=== PATIENT | female | born 1950 | race Caucasian/White ===

== ENCOUNTER 2020-07-19 09:54 | Outpatient (REF) | payer MEDICARE, SELFPAY ==
--- NOTE | ~2020-07-19 | MM_ITS ---
EXAMINATION: MM SCREENING DIGITAL BREAST TOMOSYNTHESIS, BILATERAL CLINICAL INFORMATION: Screening. Asymptomatic. The lifetime risk of breast cancer based on the Tyrer-Cuzick Model is 3.8%. COMPARISON: Mammography: August 18, 2018 and studies dating back to June 16, 2013 TECHNIQUE: Digital breast tomosynthesis is performed in both the craniocaudal and mediolateral oblique views along with computer-aided detection (CAD). Synthesized 2D images are generated from the tomosynthesis. FINDINGS: There are scattered areas of fibroglandular density (ACR BI-RADS breast composition Category b). There are no significant masses, abnormal calcifications, or other abnormalities. MM/MM tomosynthesis screening BI IMPRESSION: There are no significant changes from prior study. ASSESSMENT: BI-RADS 1: Negative RECOMMENDATION: Routine annual mammography screening. This patient's information was entered into a reminder system with a target due date for their next mammogram.
== END 2020-07-19 09:55 | disposition home or self-care (01) ==
LOC: HO.MAMMO 09:54
PROVIDERS: PCP Internal Medicine; Visit Provider Internal Medicine
DX: Z12.31 Encounter for screening mammogram for malignant neoplasm of breast (principal)
CPT/HCPCS: 77063; 77067

== ENCOUNTER 2021-06-03 08:42 | Outpatient (REF) | payer OTHER, SELFPAY ==
[2021-06-03 09:22] LABS: Basophils Absolute Auto 0.1 X10*3/uL (0.0-0.2); Basophils Percent Auto 1.1 % (0-2); Eosinophils Absolute Auto 0.1 X10*3/uL (0.0-0.4); Eosinophils Percent Auto 1.3 % (0-4); Hematocrit 37.4 % (37.0-47.0); Hemoglobin 12.3 g/dl (12.0-16.0); Imm Gran Abs Auto 0.07 X10*3/uL (0.00-0.03); Imm Gran Pct Auto 1.6 % (0.0-0.4); Lymphocytes Absolute Auto 1.3 X10*3/uL (1.2-4.9); MANUAL DIFF FLAG SCAN; Mean Corpuscular HGB Conc 32.9 g/dl (31.0-35.0); Mean Corpuscular Hemoglobin 31.6 pg (27.0-33.0); Mean Corpuscular Volume 96.1 fL (80.0-98.0); Mean Platelet Volume 10.2 fL (9.4-12.3); Monocytes Absolute Auto 0.4 X10*3/uL (0.1-1.2); Monocytes Percent Auto 8.3 % (2-11); Neutrophils Absolute Auto 2.7 x10*3/uL (2.0-8.3); Neutrophils Percent Auto 59.7 % (45-73); Platelet Count 216 X10*3/uL (160-400); Red Blood Count 3.89 X10*6/uL (4.20-5.50); Red Cell Distribution Width 12.3 % (11.0-16.0); SCAN SMEAR FLAG 1; White Blood Count 4.5 X10*3/uL (4.8-10.8)
[2021-06-03 09:44] LABS: Alanine Aminotransferase 26 U/L (0-31); Albumin Level 4.3 g/dL (3.5-5.0); Alkaline Phosphatase 81 U/L (39-117); Anion Gap 12 (12-20); Aspartate Amino Transferase 28 U/L (5-31); Bilirubin Total 0.4 mg/dL (0.0-1.0); Blood Urea Nitrogen 12 mg/dL (9-16); Calcium 9.7 mg/dL (8.4-10.2); Carbon Dioxide 27 mmol/L (22-29); Chloride 106 mmol/L (96-108); Cholesterol 139 mg/dL; Estimated Glomerular Filt Rate > 60; Glucose Fasting 126 mg/dL (60-99); HDL Cholesterol 51 mg/dL; LDL Cholesterol Calculated 56 mg/dl; Potassium 4.7 mmol/L (3.3-5.1); Sodium 140 mmol/L (135-145); Total Protein 7.3 g/dL (6.5-8.0); Triglycerides 163 mg/dL
[2021-06-03 10:06] LABS: SLIDE REVIEW VERIFIED
[2021-06-03 10:08] LABS: Thyroid Stimulating Hormone 1.09 uIU/mL (0.32-4.0)
[2021-06-03 11:24] LABS: Creatinine Urine 117.85 mg/dL; Microalbum/Creatinine Ratio Ur 21.2 ug/mg cr
[2021-06-07 12:47] LABS: Vitamin D 25-OH, D2 <4 ng/mL; Vitamin D 25-OH, D3 33 ng/mL; Vitamin D 25-OH, Total 33 ng/mL (30-100)
== END 2021-06-03 08:43 | disposition home or self-care (01) ==
LOC: HO.LAB 08:42
PROVIDERS: PCP Internal Medicine; Visit Provider Internal Medicine
DX: E03.9 Hypothyroidism, unspecified (principal); D64.9 Anemia, unspecified; E78.5 Hyperlipidemia, unspecified; E55.9 Vitamin D deficiency, unspecified; E11.9 Type 2 diabetes mellitus without complications
CPT/HCPCS: 36415; 80053; 80061; 82043; 82306; 84443; 85025

== ENCOUNTER → 2021-10-08 12:59 | Outpatient (BNVA) | payer OTHER, SELFPAY | PROVIDERS: PCP Internal Medicine; Visit Provider Nurse Practitioner Family | DX: G47.33 Obstructive sleep apnea (adult) (pediatric) (principal); R06.83 Snoring; R40.0 Somnolence | CPT/HCPCS: 99202 ==

== ENCOUNTER 2021-10-10 09:12 | Outpatient (REF) | payer OTHER, SELFPAY ==
--- NOTE | ~2021-10-10 | MM_ITS ---
EXAMINATION: MM SCREENING DIGITAL BREAST TOMOSYNTHESIS, BILATERAL CLINICAL INFORMATION: Screening. Asymptomatic. The lifetime risk of breast cancer based on the Tyrer-Cuzick Model is 4%. COMPARISON: Mammography: 07/19/2020, 08/18/2018, 07/22/2017 TECHNIQUE: Digital breast tomosynthesis is performed in both the craniocaudal and mediolateral oblique views along with computer-aided detection (CAD). Synthesized 2D images are generated from the tomosynthesis. FINDINGS: There are scattered areas of fibroglandular density (ACR BI-RADS breast composition Category b). There are no significant masses, abnormal calcifications, or other abnormalities. Parenchymal pattern is similar to prior studies. There is no developing density or architectural abnormality. The axilla and skin contours are unremarkable. No significant changes. MM/MM tomosynthesis screening BI IMPRESSION: No mammographic evidence of malignancy. ASSESSMENT: BI-RADS 1: Negative RECOMMENDATION: Routine annual mammography screening. This patient's information was entered into a reminder system with a target due date for their next mammogram.
== END 2021-10-10 09:13 | disposition home or self-care (01) ==
LOC: HO.MAMMO 09:12
PROVIDERS: PCP Internal Medicine; Visit Provider Internal Medicine
DX: Z12.31 Encounter for screening mammogram for malignant neoplasm of breast (principal)
CPT/HCPCS: 77063; 77067

== ENCOUNTER → 2021-10-29 13:58 | Outpatient (REF) | payer OTHER, SELFPAY | LOC: HO.SL 13:58 | PROVIDERS: Visit Provider Nurse Practitioner Family | DX: G47.33 Obstructive sleep apnea (adult) (pediatric) (principal); R40.0 Somnolence; R06.83 Snoring | CPT/HCPCS: 95806 ==

== ENCOUNTER → 2022-01-07 13:58 | Outpatient (BNVA) | payer OTHER, SELFPAY | PROVIDERS: PCP Internal Medicine; Visit Provider Nurse Practitioner Family | DX: G47.33 Obstructive sleep apnea (adult) (pediatric) (principal); R40.0 Somnolence; R06.83 Snoring | CPT/HCPCS: 99212 ==

== ENCOUNTER 2022-02-18 08:14 | Outpatient (REF) | payer OTHER, SELFPAY ==
[2022-02-18 09:33] LABS: Alanine Aminotransferase 24 U/L (0-31); Albumin Level 4.6 g/dL (3.5-5.0); Alkaline Phosphatase 105 U/L (39-117); Anion Gap 16 (12-20); Aspartate Amino Transferase 27 U/L (5-31); Bilirubin Total 0.6 mg/dL (0.0-1.0); Blood Urea Nitrogen 15 mg/dL (9-16); Calcium 9.9 mg/dL (8.4-10.2); Carbon Dioxide 25 mmol/L (22-29); Chloride 106 mmol/L (96-108); Cholesterol 145 mg/dL; Estimated Glomerular Filt Rate > 60; Glucose Fasting 135 mg/dL (60-99); HDL Cholesterol 51 mg/dL; LDL Cholesterol Calculated 58 mg/dl; Potassium 4.5 mmol/L (3.3-5.1); Sodium 142 mmol/L (135-145); Total Protein 7.7 g/dL (6.5-8.0); Triglycerides 180 mg/dL
[2022-02-18 09:43] LABS: Thyroid Stimulating Hormone 0.63 uIU/mL (0.32-4.0); Vitamin D 25-OH Total 31.2 ng/mL (>30)
[2022-02-18 10:01] LABS: Creatinine Urine 140.32 mg/dL; Microalbum/Creatinine Ratio Ur 42.7 ug/mg cr
== END 2022-02-18 08:15 | disposition home or self-care (01) ==
LOC: HO.LAB 08:14
PROVIDERS: PCP Internal Medicine; Visit Provider Internal Medicine
DX: E55.9 Vitamin D deficiency, unspecified (principal); E03.9 Hypothyroidism, unspecified; E11.9 Type 2 diabetes mellitus without complications; E78.5 Hyperlipidemia, unspecified
CPT/HCPCS: 36415; 80053; 80061; 82043; 82306; 84443

== ENCOUNTER 2022-05-03 08:32 | Outpatient (REF) | payer OTHER, SELFPAY ==
[2022-05-03 10:06] LABS: Alanine Aminotransferase 26 U/L (0-31); Albumin Level 4.3 g/dL (3.5-5.0); Alkaline Phosphatase 85 U/L (39-117); Anion Gap 14 (12-20); Aspartate Amino Transferase 29 U/L (5-31); Bilirubin Total 0.5 mg/dL (0.0-1.0); Blood Urea Nitrogen 11 mg/dL (9-16); Carbon Dioxide 25 mmol/L (22-29); Chloride 107 mmol/L (96-108); Cholesterol 154 mg/dL; Estimated Glomerular Filt Rate > 60; Glucose Fasting 126 mg/dL (60-99); HDL Cholesterol 51 mg/dL; LDL Cholesterol Calculated 67 mg/dl; Potassium 4.6 mmol/L (3.3-5.1); Sodium 141 mmol/L (135-145); Total Protein 6.9 g/dL (6.5-8.0); Triglycerides 184 mg/dL
[2022-05-03 10:27] LABS: Thyroid Stimulating Hormone 0.99 uIU/mL (0.32-4.0); Vitamin D 25-OH Total 42.9 ng/mL (>30)
[2022-05-03 11:03] LABS: Creatinine Urine 125.77 mg/dL; Microalbum/Creatinine Ratio Ur 23.8 ug/mg cr
== END 2022-05-03 08:33 | disposition home or self-care (01) ==
LOC: HO.LAB 08:32
PROVIDERS: PCP Internal Medicine; Visit Provider Internal Medicine
DX: E03.9 Hypothyroidism, unspecified (principal); E11.9 Type 2 diabetes mellitus without complications; E55.9 Vitamin D deficiency, unspecified; E78.5 Hyperlipidemia, unspecified
CPT/HCPCS: 36415; 80053; 80061; 82043; 82306; 84443

== ENCOUNTER → 2022-07-08 12:55 | Outpatient (BNVA) | payer OTHER, SELFPAY | PROVIDERS: PCP Internal Medicine; Visit Provider Nurse Practitioner Family | DX: G47.33 Obstructive sleep apnea (adult) (pediatric) (principal); R40.0 Somnolence | CPT/HCPCS: 99212 ==

== ENCOUNTER 2022-10-16 08:14 | Outpatient (REF) | payer OTHER, SELFPAY ==
[2022-10-16 09:14] LABS: Alanine Aminotransferase 16 U/L (0-31); Albumin Level 4.5 g/dL (3.5-5.0); Alkaline Phosphatase 81 U/L (39-117); Anion Gap 14 (12-20); Aspartate Amino Transferase 21 U/L (5-31); Bilirubin Total 0.3 mg/dL (0.0-1.0); Blood Urea Nitrogen 12 mg/dL (9-16); Calcium 9.8 mg/dL (8.4-10.2); Carbon Dioxide 24 mmol/L (22-29); Chloride 108 mmol/L (96-108); Cholesterol 142 mg/dL (<200); Estimated Glomerular Filt Rate > 60; Glucose Fasting 123 mg/dL (60-99); HDL Cholesterol 47 mg/dL (>40); LDL Cholesterol Calculated 57 mg/dL (<100); Potassium 4.1 mmol/L (3.3-5.1); Sodium 142 mmol/L (135-145); Total Protein 7.7 g/dL (6.5-8.0); Triglycerides 190 mg/dL (<150)
[2022-10-16 09:30] LABS: Thyroid Stimulating Hormone 1.14 uIU/mL (0.32-4.0); Vitamin D 25-OH Total 51.5 ng/mL (>30)
[2022-10-16 09:39] LABS: Microalbum/Creatinine Ratio Ur 63.1 ug/mg cr (<30)
== END 2022-10-16 08:15 | disposition home or self-care (01) ==
LOC: HO.LAB 08:14
PROVIDERS: PCP Internal Medicine; Visit Provider Internal Medicine
DX: Z12.31 Encounter for screening mammogram for malignant neoplasm of breast (principal); E78.5 Hyperlipidemia, unspecified; E03.9 Hypothyroidism, unspecified; E55.9 Vitamin D deficiency, unspecified; E11.9 Type 2 diabetes mellitus without complications
CPT/HCPCS: 36415; 77063; 77067; 80053; 80061; 82043; 82306; 82570; 84443

== ENCOUNTER 2022-10-16 08:39 | Outpatient (REF) | payer OTHER, SELFPAY | END 2022-10-16 08:40 | disposition home or self-care (01) | LOC: HO.MAMMO 08:39 | PROVIDERS: Visit Provider Internal Medicine | DX: Z13.89 Encounter for screening for other disorder (principal) ==

== ENCOUNTER → 2022-10-16 09:45 | Outpatient (BNV) | payer OTHER, SELFPAY | PROVIDERS: PCP Internal Medicine; Visit Provider Radiology Diagnostic Radiology | DX: Z12.31 Encounter for screening mammogram for malignant neoplasm of breast (principal) | CPT/HCPCS: 77063; 77067 ==

== ENCOUNTER 2022-11-19 15:47 | Outpatient (AMB) | payer OTHER, SELFPAY ==
--- NOTE | 2022-11-19 15:53 | A.OFFPC_ITS ---
Vital Signs 11/19/22 15:55 Height 4 ft 10 in Weight 176 lb BMI 36.8 BP 126/80 Blood Pressure Location Lt brachial Position Sitting Pulse 83 Pulse Source Pulse Oximeter Pulse Oximetry (%) 97 Oxygen Delivery Method Room Air Intake Visit Reasons: dm Intake Note: Patient here for a follow up DM Direct Mail Coordinator Required: No Accompanied by: Self / Same As Patient Allergies No Known Allergies Allergy (Verified 11/19/22 16:05) Medication List - Last Reconciled 11/19/22 by Luba Funes MD [adult pull-ups As directed] albuterol sulfate 2.5 mg (3 mL) inhalation QID PRN 30 days blood pressure monitor As directed blood sugar diagnostic ([facility] Verio test strips) Use 1 strip once a day blood-glucose meter ([facility] Verio Meter) As directed cholecalciferol (vitamin D3) 50 mcg PO DAILY 90 days diaper,brief,adult,disposable Three times a day fluoxetine 20 mg PO DAILY fluticasone propionate 50 mcg/actuation (Flonase Allergy Relief) 1 spray intr anasal BID 30 days lancets ([facility] Delica Lancets) Use 1 lancet once a day levothyroxine 50 mcg PO DAILY lisinopril 10 mg PO DAILY 90 days loratadine (Allergy Relief (loratadine)) 10 mg PO DAILY 90 days meloxicam 15 mg PO DAILY 30 days metformin ER 500 mg PO BID 90 days metoprolol tartrate 25 mg PO BID nebulizers (AeroEclipse II Nebulizer) As directed oxybutynin chloride ER 15 mg PO DAILY pantoprazole 40 mg PO DAILY 90 days perphenazine 4 mg PO BEDTIME propylene glycol 0.6% (Systane Balance) 1 drp ophthalmic (eye) DAILY PRN 7 days rosuvastatin 40 mg PO DAILY 90 days underpads (Goodnites Bed Mats) Use 1 underpad three times a day Ventolin HFA 90 mcg/actuation (albuterol sulfate) 2 puffs inhalation Q6H PRN 30 days NS [wipes As directed] Tobacco use date assessed: 03/10/22 Fall risk assessment: No Falls in past year Last assessed Fall Risk: 11/19/22 Dental Screening Dental Screen Date: 11/19/22 Did you have a dental visit in the last 12 months?: No Did you have a dental problem in the last 6 months where you did not have access to dental care?: No Was dental information given to patient?: Patient has dentist HPI HPI Comments History of Present Illness Details This is a 72-year-old female with diabetes mellitus type 2, hypothyroidism, hypertension, pure hypercholesterolemia and mild recurrent major depression that comes today for follow-up on her conditions. A1c within goal. TSH normal. Blood pressure stable. LDL within goal. Depression stable. PFSH Medical History Foot callus Mild recurrent major depression LUIS F on CPAP Back pain Giardiasis Urge urinary incontinence Urge urinary incontinence COVID-19 Diabetes mellitus Renal calculi History of bacteremia Pure hypercholesterolemia GERD (gastroesophageal reflux disease) Hypothyroidism Surgical History History of tubal ligation Family History Father No problems noted. Mother Renal cancer Maternal Uncle Bone cancer Social History Housing: Apartment Alcohol intake: never Patient Tobacco Use Status: Never used Tobacco e-Cigarette/Vaping Use: Never Used Second Hand Smoke Exposure: No service: No Current occupational status: disabled Cognitive needs: No Hearing needs: No Vision needs: No Questionnaire Thrive Questionnaire Date Thrive assessed: 03/10/22 ASHOK-7 AMB Questionnaire ASHOK-7 Date ASHOK - 7 assessed: 03/10/22 Source: Developed by Drs. Arslan Francois, Leslie Hendrickson, Brayan Kruger and colleagues, with an educational crystal from [employer]. Review of Systems Const All systems reviewed & are unremarkable except as noted in HPI and below Eyes Reports no additional complaints, Denies change in vision and Denies other visual disturbances Card Denies chest pain at rest, Denies chest pain with activity, Denies edema, Denies irregular heart rhythm, Denies claudication, Denies dyspnea, Denies dyspnea on exertion, Denies orthopnea, Denies paroxysmal nocturnal dyspnea and Denies slow heart rate Resp Denies cough, Denies dyspnea and Denies dyspnea on exertion GI Denies abdominal pain, Denies change in bowel habits, Denies excessive flatus, Denies nausea and Denies vomiting Denies urinary incontinence, Denies urinary hesitancy and Denies urinary urgency Musc Denies abnormal gait, Denies atrophy, Denies deformity and Denies limited range of motion Skin/Breast Denies bleeding lesions, Denies changing lesions and Denies rash Neuro Denies abnormal gait and Denies lack of coordination Physical exam (Primary Care) Vital Signs: Last Vital Signs Pulse 83 11/19/22 15:55 BP 126/80 11/19/22 15:55 Pulse Ox 97 11/19/22 15:55 Oxygen Delivery Method Room Air 11/19/22 15:55 BMI result Body Mass Index 36.8 Tobacco/Smoking Status: Tobacco use Status Tobacco use date assessed 03/10/22 11/19/22 15:54 Patient Tobacco Use Status Never used Tobacco 11/19/22 15:54 Tobacco use type 05/29/21 15:51 e-Cigarette/Vaping Use Never Used 11/19/22 15:54 Thrive Assessment: Date of Thrive Assessment Date Thrive assessed 03/10/22 11/19/22 15:54 Eyes General: appearance normal, both eyes and all related structures Eyelids: Yes eyelids normal Conjunctivae: conjunctivae normal Neck Neck: Yes normal visual inspection and Yes supple Resp Effort & Inspection: normal respiratory effort Auscultation: clear to auscultation bilaterally Cardio Jugular venous distension: no JVD Rate: regular rate Rhythm: regular rhythm Heart sounds: S1 normal heart sound present and S2 normal heart sound present Extrem General: Yes full ROM Office Procedures Flu Questionnaire Does the patient have a severe egg allergy?: No Does the patient have severe life threatening allergies?: No Does the patient have a fever or illness today?: No Has the patient ever had Guillain-[place] Syndrome?: No Has the patient ever had any past reaction to a flu shot?: No Results AMB Hemoglobin A1c AMB Hemoglobin A1c 6.9 % Last Edit by BRENDA Albarran on 11/19/22 16:0 2 Immunizations flu vacc [id number] 6mos up(PF) 60 mcg(15 mcgx4)/0.5 mL IM syringe Performing Provider: Luba Funes MD Performing Location: [facility] Administered by: BRENDA Albarran on 11/19/22 16:13 Dose Route Admin Location Dispensed Lot Number Expiration Date NDC Duty Manager 0.5 mL IM Left Deltoid 0.5 mL [id number] 08/09/23 40216-779-40 [employer] VIS Given Date VIS Provided VIS Publication Date 11/19/22 Single Vaccine 20 Eligibility Eligibility Date Funding Source Not VFC Eligible 11/19/22 Private Results Reviewed Results Reviewed: Laboratory Last Values Hgb A1c (Clinic) 6.9 % (4.0-6.0) H 11/19/22 15:52 Assessment and Plan Assessment & Plan (1) Mild recurrent major depression: Code(s): F33.0 - Major depressive disorder, recurrent, mild Plan: Continue SSRIs. (2) Essential hypertension: Code(s): I10 - Essential (primary) hypertension Plan: Continue lisinopril. Blood pressure goal is equal or less than 130/80. (3) Diabetes mellitus: Code(s): E11.9 - Type 2 diabetes mellitus without complications Qualifiers: Diabetes mellitus type: type 2 Diabetes mellitus marine oil terminal superintendent insulin use: without marine oil terminal superintendent use Diabetes mellitus complication status: without complication Qualified Code(s): E11.9 - Type 2 diabetes mellitus without complications Plan: Continue metformin. A1c goal is equal or less than 7%. (4) Hypothyroidism: Code(s): E03.9 - Hypothyroidism, unspecified Qualifiers: Hypothyroidism type: acquired Qualified Code(s): E03.9 - Hypothyroidism, unspecified Plan: Continue levothyroxine. (5) Pure hypercholesterolemia: Code(s): E78.00 - Pure hypercholesterolemia, unspecified Plan: Continue statins. LDL goal is less than 70. Orders: Orders Lipid Panel 4 Months E78.5 - Hyperlipidemia, unspecified Microalbumin, Random (w Creat) 4 Months E11.9 - Type 2 diabetes mellitus without complications AMB Hemoglobin A1c Today E11.9 - Type 2 diabetes mellitus without complications Influenza [id number] Immunization Today Z23 - Encounter for immunization Vitamin D 25-OH Total 4 Months E55.9 - Vitamin D deficiency, unspecified Comprehensive [place]. Panel Fast 4 Months E11.9 - Type 2 diabetes mellitus without complications Coding Level of Care Code Est Pt Level 4 (47587) Diagnoses Mild recurrent major depression F33.0 Essential hypertension I10 Type 2 diabetes mellitus without complication, without long-term current use of insulin E11.9 Diabetes mellitus type: type 2 Diabetes mellitus senior care insulin use: without marine oil terminal superintendent use Diabetes mellitus complication status: without complication Acquired hypothyroidism E03.9 Hypothyroidism type: acquired Pure hypercholesterolemia E78.00 Time Spent (min) 23
[2022-11-19 15:55] VITALS: BP 126/80; PULSE 83; O2SAT 97; BMI 36.8
== END 2022-11-19 16:14 | disposition home or self-care (01) ==
PROVIDERS: PCP Internal Medicine; Visit Provider Internal Medicine
DX: F33.0 Major depressive disorder, recurrent, mild (principal); I10 Essential (primary) hypertension; E11.9 Type 2 diabetes mellitus without complications; E03.9 Hypothyroidism, unspecified; E78.00 Pure hypercholesterolemia, unspecified; Z23 Encounter for immunization
CPT/HCPCS: 83036; 90471; 90686; 99214

== ENCOUNTER 2023-03-14 09:58 | Outpatient (REF) | payer OTHER, SELFPAY ==
[2023-03-14 12:18] LABS: Alanine Aminotransferase 37 U/L (0-31); Alkaline Phosphatase 99 U/L (39-117); Anion Gap 11 (12-20); Aspartate Amino Transferase 46 U/L (5-31); Bilirubin Total 0.3 mg/dL (0.0-1.0); Blood Urea Nitrogen 18 mg/dL (9-16); Calcium 9.4 mg/dL (8.4-10.2); Carbon Dioxide 24 mmol/L (22-29); Chloride 110 mmol/L (96-108); Cholesterol 108 mg/dL (<200); Estimated Glomerular Filt Rate 53; Glucose Fasting 117 mg/dL (60-99); HDL Cholesterol 41 mg/dL (>40); LDL Cholesterol Calculated 45 mg/dL (<100); Potassium 4.4 mmol/L (3.3-5.1); Sodium 141 mmol/L (135-145); Total Protein 7.2 g/dL (6.5-8.0); Triglycerides 114 mg/dL (<150)
[2023-03-14 12:22] LABS: Vitamin D 25-OH Total 44.7 ng/mL (>30)
[2023-03-14 12:34] LABS: Microalbum/Creatinine Ratio Ur 299.1 ug/mg cr (<30)
== END 2023-03-14 09:59 | disposition home or self-care (01) ==
LOC: HO.LAB 09:58
PROVIDERS: PCP Internal Medicine; Visit Provider Internal Medicine
DX: E78.5 Hyperlipidemia, unspecified (principal); E55.9 Vitamin D deficiency, unspecified; E11.9 Type 2 diabetes mellitus without complications
CPT/HCPCS: 36415; 80053; 80061; 82043; 82306; 82570

== ENCOUNTER 2023-03-23 13:37 | Outpatient (AMB) | payer OTHER, SELFPAY ==
[2023-03-23 13:50] VITALS: BP 126/70; BMI 34.7
--- NOTE | 2023-03-23 13:50 | MHC.PC.OV ---
Vital Signs 03/23/23 13:50 Height 4 ft 10 in Weight 166 lb BMI 34.7 BP 126/70 Blood Pressure Location Lt brachial Position Sitting Intake Visit Reasons: dm Intake Note: Patient here for a follow up DM O And M Supervisor Required: No Accompanied by: Self / Same As Patient Allergies No Known Allergies Allergy (Verified 03/23/23 14:13) Medication List - Last Reconciled 03/23/23 by Luba Funes MD [adult pull-ups As directed] albuterol sulfate 2.5 mg (3 mL) inhalation QID PRN 30 days blood pressure monitor As directed blood sugar diagnostic (One[employer] Verio test strips) Use 1 strip once a day blood-glucose meter (OneTouch Verio Meter) As directed cholecalciferol (vitamin D3) 50 mcg PO DAILY 90 days diaper,brief,adult,disposable XL, Three times a day fluoxetine 20 mg PO DAILY fluticasone propionate 50 mcg/actuation (Flonase Allergy Relief) 1 spray intranasal BID 30 days lancets Use 1 lancet once a day levothyroxine 50 mcg PO DAILY lisinopril 10 mg PO DAILY 90 days loratadine (Allergy Relief (loratadine)) 10 mg PO DAILY 90 days meloxicam 15 mg PO DAILY 30 days metformin ER 500 mg PO BID 90 days metoprolol tartrate 25 mg PO BID nebulizers (AeroEclipse II Nebulizer) As directed oxybutynin chloride ER 15 mg PO DAILY pantoprazole 40 mg PO DAILY 90 days perphenazine 4 mg PO BEDTIME propylene glycol 0.6% (Systane Balance) 1 drp ophthalmic (eye) DAILY PRN 7 days rosuvastatin 40 mg PO DAILY 90 days underpads ([employer] Bed Mats) Use 1 underpad three times a day Ventolin HFA 90 mcg/actuation (albuterol sulfate) 2 puffs inhalation Q6H PRN 30 days NS [wipes As directed] Tobacco use date assessed: 03/23/23 Fall risk assessment: No Falls in past year Last assessed Fall Risk: 03/23/23 Dental Screening Dental Screen Date: 03/23/23 Did you have a dental visit in the last 12 months?: No Did you have a dental problem in the last 6 months where you did not have access to dental care?: No Was dental information given to patient?: Patient has dentist HPI HPI Comments History of Present Illness Details This is a 72-year-old female with diabetes mellitus type 2, mild major depression, hypertension, pure hypercholesterolemia and hypothyroidism that comes today for follow-up on her conditions. Walks with a cane for gait stability. A1c slightly elevated and dietary changes were advised. Depression stable with SSRIs. Blood pressure well controlled. LDL within goal. TSH was ordered and she is compliant with her medications. Denies any chest pain or shortness of breath. COUNTS INCLUDE 234 BEDS AT THE [facility] Medical History Foot callus Mild recurrent major depression LUIS F on CPAP Back pain Giardiasis Urge urinary incontinence Urge urinary incontinence COVID-19 Diabetes mellitus Renal calculi History of bacteremia Pure hypercholesterolemia GERD (gastroesophageal reflux disease) Hypothyroidism Surgical History History of tubal ligation Family History Father No problems noted. Mother Renal cancer Maternal Uncle Bone cancer Social History Housing: Apartment Alcohol intake: never Patient Tobacco Use Status: Never used Tobacco e-Cigarette/Vaping Use: Never Used Second Hand Smoke Exposure: No service: No Current occupational status: disabled Cognitive needs: No Hearing needs: No Vision needs: No Questionnaire PHQ-9 Over the last 2 weeks, how often have you been bothered by any of the following problems? 1. Little interest or pleasure in doing things: not at all 2. Feeling down, depressed, or hopeless: not at all 3. Trouble falling or staying asleep, or sleeping too much: not at all 4. Feeling tired or having little energy: not at all 5. Poor appetite or overeating: not at all 6. Feeling bad about yourself - or that you are a failure or have let yourself or your family down: not at all 7. Trouble concentrating on things, such as reading the newspaper or watching television: not at all 8. Moving or speaking so slowly that other people could have noticed. Or the opposite - being so fidgety or restless that you have been moving around a lot more than usual: not at all 9. Thoughts that you would be better off or of hurting yourself in some way: not at all Total score: 0 Depression Screening Interpretation: Negative Depression Screening Done: Yes 45277 - PHQ-9 Billing: Yes Source: Developed by Drs. Arslan Francois, Leslie Hendrickson, Brayan Kruger and colleagues, with an educational crystal from [employer]. Thrive Questionnaire Date Thrive assessed: 03/23/23 I am a: Patient What is your living situation today?: I have a steady place to live Within the past 12 months, did the food you bought not last and you didn't have the money to get more?: Never true Within the past 12 months, did you worry whether your food would run out before you got money to buy more?: Never true Do you have trouble paying for medicines?: No Do you have trouble getting transportation to medical appointments?: No Do you have trouble paying your heating and electricity bill?: No Do you have trouble taking care of your child, family member or friend?: No Do you have trouble with day-to-day activities such as bathing, preparing meals, shopping, managing finances, etc.?: No Are you currently unemployed and looking for a job?: No Are you interested in more education?: No Please select the resources that you would like help with: None Currently or been in a relationship where the following occur: no concerns reported THRIVE Score: 0 AUDIT C Alcohol Use Questionnaire (AUDIT-C) 1. How often do you have a drink containing alcohol?: Never Total Score: 0 ASHOK-7 AMB Questionnaire ASHOK-7 Date ASHOK - 7 assessed: 03/23/23 Feeling nervous, anxious, or on edge: 0 = Not at all Not being able to stop or control worryin = Not at all Worrying too much about different things: 0 = Not at all Trouble relaxin = Not at all Being so restless that it is hard to sit still: 0 = Not at all Becoming easily annoyed or irritable: 0 = Not at all Feeling afraid as if something awful might happen: 0 = Not at all Total ASHOK-7 score (0-4 normal; 5-9 mild; 10-14 moderate; 15-21 severe): 0 Source: Developed by Leslie Frias. Emeka, Brayan Kruger and colleagues, with an educational crystal from [employer]. ASHOK-7 Assessment Billing ASHOK-7 Assessment Tool: ASHOK-7 Assessment 63316 Review of Systems Const All systems reviewed & are unremarkable except as noted in HPI and below Eyes Reports no additional complaints, Denies change in vision and Denies other visual disturbances Card Denies chest pain at rest, Denies chest pain with activity, Denies edema, Denies irregular heart rhythm, Denies claudication, Denies dyspnea, Denies dyspnea on exertion, Denies orthopnea, Denies paroxysmal nocturnal dyspnea and Denies slow heart rate Resp Denies cough, Denies dyspnea and Denies dyspnea on exertion GI Denies abdominal pain, Denies change in bowel habits, Denies excessive flatus, Denies nausea and Denies vomiting Denies urinary incontinence, Denies urinary hesitancy and Denies urinary urgency Musc Denies abnormal gait, Denies atrophy, Denies deformity and Denies limited range of motion Skin/Breast Denies bleeding lesions, Denies changing lesions and Denies rash Neuro Denies abnormal gait, Denies behavioral changes and Denies lack of coordination Psych Denies behavioral changes Physical exam (Primary Care) Vital Signs: Last Vital Signs BP 126/70 03/23/23 13:50 BMI result Body Mass Index 34.7 Tobacco/Smoking Status: Tobacco use Status Tobacco use date assessed 03/23/23 03/23/23 13:56 Patient Tobacco Use Status Never used Tobacco 03/23/23 13:56 Tobacco use type 05/29/21 15:51 e-Cigarette/Vaping Use Never Used 03/23/23 13:56 PHQ-9: PHQ-9 Score PHQ-9: Total score 0 03/23/23 14:15 Depression Screening Interpretation: Negative Thrive Assessment: Date of Thrive Assessment Date Thrive assessed 03/23/23 03/23/23 13:56 Currently or been in a relationship where the following occur: no concerns reported Eyes General: appearance normal, both eyes and all related structures Eyelids: Yes eyelids normal Conjunctivae: conjunctivae normal Neck Neck: Yes normal visual inspection and Yes supple Resp Effort & Inspection: normal respiratory effort Auscultation: clear to auscultation bilaterally Cardio Jugular venous distension: no JVD Rate: regular rate Rhythm: regular rhythm Heart sounds: S1 normal heart sound present and S2 normal heart sound present Extrem General: Yes full ROM Results AMB Hemoglobin A1c AMB Hemoglobin A1c 7.2 % Last Edit by BRENDA Albarran on 03/23/23 13:59 Results Reviewed Results Reviewed: Laboratory Last Values Hgb A1c (Clinic) 7.2 % (4.0-6.0) H 03/23/23 13:57 Assessment and Plan Assessment & Plan (1) Mild recurrent major depression: Code(s): F33.0 - Major depressive disorder, recurrent, mild Plan: Continue SSRIs. (2) Essential hypertension: Code(s): I10 - Essential (primary) hypertension Plan: Continue lisinopril. Blood pressure goal is equal or less than 130/80. (3) Diabetes mellitus: Code(s): E11.9 - Type 2 diabetes mellitus without complications Qualifiers: Diabetes mellitus type: type 2 Diabetes mellitus penitentiary insulin use: without buttermaker continuous churn use Diabetes mellitus complication status: without complication Qualified Code(s): E11.9 - Type 2 diabetes mellitus without complications Plan: Continue metformin. A1c goal is equal or less than 7%. (4) Pure hypercholesterolemia: Code(s): E78.00 - Pure hypercholesterolemia, unspecified Plan: Continue statins. LDL goal is less than 70. (5) Hypothyroidism: Code(s): E03.9 - Hypothyroidism, unspecified Qualifiers: Hypothyroidism type: acquired Qualified Code(s): E03.9 - Hypothyroidism, unspecified Plan: Continue levothyroxine. Orders: Orders AMB Hemoglobin A1c Today E11.9 - Type 2 diabetes mellitus without complications Thyroid Stimulating Hormone Today E03.9 - Hypothyroidism, unspecified Vitamin D 25-OH Total Today E55.9 - Vitamin D deficiency, unspecified Microalbumin, Random (w Creat) Today E11.9 - Type 2 diabetes mellitus without complications Medications: Changed From lancets (OneTouch Delica Lancets) Use 1 lancet once a day 100 ea 3RF E11.9 - Type 2 diabetes mellitus without complications To lancets Use 1 lancet once a day 100 ea 3RF E11.9 - Type 2 diabetes mellitus without complications Refilled blood sugar diagnostic (OneTouch Verio test strips) Use 1 strip once a day 100 ea 3RF E11.9 - Type 2 diabetes mellitus without complications underpads ([employer]nites Bed Mats) Use 1 underpad three times a day 270 ea 5RF N39.41 - Urge incontinence [adult pull-ups] As directed 120 ea 11RF N39.41 - Urge incontinence diaper,brief,adult,disposable XL, Three times a day 270 ea 5RF N39.41 - Urge incontinence Coding Level of Care Code Est Pt Level 4 (01687) Diagnoses Mild recurrent major depression F33.0 Essential hypertension I10 Type 2 diabetes mellitus without complication, without long-term current use of insulin E11.9 Diabetes mellitus type: type 2 Diabetes mellitus penitentiary insulin use: without buttermaker continuous churn use Diabetes mellitus complication status: without complication Pure hypercholesterolemia E78.00 Acquired hypothyroidism E03.9 Hypothyroidism type: acquired Additional Codes ASHOK-7 Assessment Billing - ASHOK-7 Assessment Tool: ASHOK-7 Assessment 24156 ([id number]) Time Spent (min) 24
== END 2023-03-23 14:27 | disposition home or self-care (01) ==
PROVIDERS: PCP Internal Medicine; Visit Provider Internal Medicine
DX: E11.9 Type 2 diabetes mellitus without complications (principal); F33.0 Major depressive disorder, recurrent, mild; I10 Essential (primary) hypertension; E78.00 Pure hypercholesterolemia, unspecified; E03.9 Hypothyroidism, unspecified
CPT/HCPCS: 83036; 99214

== ENCOUNTER 2023-05-20 12:19 | Outpatient (AMB) | payer OTHER, SELFPAY ==
--- NOTE | 2023-05-20 12:29 | MHC.OFFVIS ---
Intake Vital Signs 05/20/23 12:31 Height 4 ft 10 in Weight 165 lb BMI 34.5 BP 138/72 Blood Pressure Location Rt brachial Position Sitting Respiration 16 Pulse 90 Pulse Source Pulse Oximeter Pulse Oximetry (%) 98 Oxygen Delivery Method Room Air Intake Visit Reasons: 1 yr f/u appt for sleep-CONF Intake Note: Pt presents to the office for a 1 year follow up for daytime somnolence. 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 The CPAP compliance and therapy response (02/18/23- reviewed with the patient. Pt is on APAP [id number]. The usage days 97% and the average usage hours 4 hours. The mean pressure is 9.8 and the residual AHI was 7.4 average leak 40 Her home care company is [employer]. Pt reports that she sleeps well with the new CPAP and wakes up refreshed and has more energy during the day. PENDING SALE TO [facility] Medical History Foot callus Mild recurrent major depression LUIS F on CPAP Back pain Giardiasis Urge urinary incontinence Urge urinary incontinence COVID-19 Diabetes mellitus Renal calculi History of bacteremia Pure hypercholesterolemia GERD (gastroesophageal reflux disease) Hypothyroidism Surgical History History of tubal ligation Family History Father No problems noted. Mother Renal cancer Maternal Uncle Bone cancer Social History Housing: Apartment Alcohol intake: never Patient Tobacco Use Status: Never used Tobacco e-Cigarette/Vaping Use: Never Used Second Hand Smoke Exposure: No service: No Current occupational status: disabled Cognitive needs: No Hearing needs: No Vision needs: No Review of Systems ENT Reports Normal hearing present Neuro Reports Normal hearing present Physical Exam Vital Signs: Last Vital Signs Pulse 90 05/20/23 12:31 Resp 16 05/20/23 12:31 BP 138/72 05/20/23 12:31 Pulse Ox 98 05/20/23 12:31 Oxygen Delivery Method Room Air 05/20/23 12:31 BMI result Body Mass Index 34.5 Const General: cooperative and no acute distress Nutritional Appearance: obese Orientation/consciousness: patient oriented x3 Limitations: language barrier (Greenlandic speaking only) Neck Neck: Yes full ROM and Yes supple Resp Effort & Inspection: normal respiratory effort and able to speak in complete sentences Neuro General: patient oriented x3 Cranial nerves: Yes Normal facial strength present, Yes Midline tongue present, Yes Symmetric palate elevation present, Yes Normal hearing present, Yes Ability to bilaterally rotate head present and Yes Ability to bilaterally elevate shoulders present Cognition (Neuro): normal cognition Gait exam (Neuro): Antalgic gait present Psych Appearance: grossly normal Mental Status: mental status grossly normal Speech and movement: Normal speech and movement present Assessment & Plan Assessment & Plan (1) LUIS F (obstructive sleep apnea): Comment: Severe degree of sleep apnea. The AHI was 35/hr and oxygen jen was 79%. Code(s): G47.33 - Obstructive sleep apnea (adult) (pediatric) Plan Advised patient to continue to use APAP [id number] as patient experiences good clinical effect. Stressed compliance, use CPAP nightly and more than 4 hours. Clean mask and tubing regularly. I will send request for mask fitting - her average leak is high Encouraged patient to daily exercise and wt reduction advised. Coding Level of Care Code Est Pt Level 4 (33269) Diagnoses LUIS F (obstructive sleep apnea) G47.33
[2023-05-20 12:31] VITALS: BP 138/72; PULSE 90; RESP 16; O2SAT 98; BMI 34.5
== END 2023-05-20 12:53 | disposition home or self-care (01) ==
LOC: HO.HSMC 12:19
PROVIDERS: PCP Internal Medicine; Visit Provider Psychiatry & Neurology Neurology
DX: G47.33 Obstructive sleep apnea (adult) (pediatric) (principal)
CPT/HCPCS: 99214

== ENCOUNTER → 2023-05-20 12:19 | Outpatient (BNVA) | payer OTHER, SELFPAY | PROVIDERS: PCP Internal Medicine; Visit Provider Psychiatry & Neurology Neurology | DX: G47.33 Obstructive sleep apnea (adult) (pediatric) (principal) | CPT/HCPCS: 99212 ==

== ENCOUNTER 2023-06-06 08:14 | Outpatient (REF) | payer OTHER, SELFPAY ==
[2023-06-06 10:07] LABS: Thyroid Stimulating Hormone 0.96 uIU/mL (0.32-4.0); Vitamin D 25-OH Total 47.1 ng/mL (>30)
[2023-06-06 10:19] LABS: Creatinine Urine 102.46 mg/dL; Microalbum/Creatinine Ratio Ur 256.6 ug/mg cr (<30)
== END 2023-06-06 08:15 | disposition home or self-care (01) ==
LOC: HO.LAB 08:14
PROVIDERS: PCP Internal Medicine; Visit Provider Internal Medicine
DX: E03.9 Hypothyroidism, unspecified (principal); E55.9 Vitamin D deficiency, unspecified; E11.9 Type 2 diabetes mellitus without complications
CPT/HCPCS: 36415; 82043; 82306; 82570; 84443

== ENCOUNTER 2023-06-15 12:25 | Outpatient (AMB) | payer OTHER, SELFPAY ==
[2023-06-15 12:37] VITALS: BP 130/70; PULSE 78; BMI 33.9
--- NOTE | 2023-06-15 12:37 | MHC.PC.OV ---
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 Arms Required: No Accompanied by: Self / Same As Patient Allergies No Known Allergies Allergy (Verified 06/15/23 13:01) Medication List - Last Reconciled 06/15/23 by Luba Funes MD [adult pull-ups As directed] albuterol sulfate 2.5 mg (3 mL) inhalation QID PRN 30 days blood pressure monitor As directed blood sugar diagnostic (OffersBy.MeTouch Verio test strips) Use 1 strip once a day blood-glucose meter (Earbitsuch Verio Meter) As directed cholecalciferol (vitamin D3) 50 mcg PO DAILY 90 days diaper,brief,adult,disposable XL, Three times a day fluoxetine 20 mg PO DAILY fluticasone propionate 50 mcg/actuation (Flonase Allergy Relief) 1 spray intranasal BID 30 days lancets Use 1 lancet once a day levothyroxine 50 mcg PO DAILY lisinopril 10 mg PO DAILY 90 days loratadine (Allergy Relief (loratadine)) 10 mg PO DAILY 90 days meloxicam 15 mg PO DAILY 30 days metformin ER 500 mg PO BID 90 days metoprolol tartrate 25 mg PO BID nebulizers (AeroEclipse II Nebulizer) As directed oxybutynin chloride ER 15 mg PO DAILY pantoprazole 40 mg PO DAILY 90 days perphenazine 4 mg PO BEDTIME propylene glycol 0.6% (Systane Balance) 1 drp ophthalmic (eye) DAILY PRN 7 days rosuvastatin 40 mg PO DAILY 90 days underpads (Goodnites Bed Mats) Use 1 underpad three times a day Ventolin HFA 90 mcg/actuation (albuterol sulfate) 2 puffs inhalation Q6H PRN 30 days NS [wipes As directed] Tobacco use date assessed: 03/23/23 Fall risk assessment: No Falls in past year Last assessed Fall Risk: 06/15/23 Dental Screening Dental Screen Date: 03/23/23 HPI HPI Comments History of Present Illness Details This is a 72-year-old female with mild recurrent major depression and diabetes mellitus type 2 that comes for her physical exam. Depression stable with SSRIs. A1c within goal. Last mammogram was October 2022 and was normal. Last Pap smear was 2020. Last colonoscopy was less than 10 years ago and was normal as per patient. Complains of low back pain that was aggravated by twisting movement few days ago. Will prescribe methocarbamol. [facility] Medical History Foot callus Mild recurrent major depression LUIS F on CPAP Back pain Giardiasis Urge urinary incontinence Urge urinary incontinence COVID-19 Diabetes mellitus Renal calculi History of bacteremia Pure hypercholesterolemia GERD (gastroesophageal reflux disease) Hypothyroidism Surgical History History of tubal ligation Family History Father No problems noted. Mother Renal cancer Maternal Uncle Bone cancer Social History Housing: Apartment Alcohol intake: never Patient Tobacco Use Status: Never used Tobacco e-Cigarette/Vaping Use: Never Used Second Hand Smoke Exposure: No service: No Current occupational status: disabled Cognitive needs: No Hearing needs: No Vision needs: No Questionnaire Thrive Questionnaire Date Thrive assessed: 03/23/23 ASHOK-7 AMB Questionnaire ASHOK-7 Date ASHOK - 7 assessed: 03/23/23 Source: Developed by Drs. Arslan Francois, Leslie Hendrickson, Brayan Kruger and colleagues, with an educational crystal from [employer]. Review of Systems Const All systems reviewed & are unremarkable except as noted in HPI and below Eyes Reports no additional complaints, Denies change in vision and Denies other visual disturbances Card Denies chest pain at rest, Denies chest pain with activity, Denies edema, Denies irregular heart rhythm, Denies claudication, Denies dyspnea, Denies dyspnea on exertion, Denies orthopnea, Denies paroxysmal nocturnal dyspnea and Denies slow heart rate Resp Denies cough, Denies dyspnea and Denies dyspnea on exertion Physical exam (Primary Care) Vital Signs: Last Vital Signs Pulse 78 06/15/23 12:37 BP 130/70 06/15/23 12:37 BMI result Body Mass Index 33.9 Tobacco/Smoking Status: Tobacco use Status Tobacco use date assessed 03/23/23 06/15/23 12:47 Patient Tobacco Use Status Never used Tobacco 06/15/23 12:47 Tobacco use type 05/29/21 15:51 e-Cigarette/Vaping Use Never Used 06/15/23 12:47 Thrive Assessment: Date of Thrive Assessment Date Thrive assessed 03/23/23 06/15/23 12:47 Const Orientation/consciousness: patient oriented x3 HENMT Head: Yes normal to inspection, Yes normocephalic and Yes atraumatic Ears: external ears normal Eyes General: appearance normal, both eyes and all related structures Eyelids: Yes eyelids normal Conjunctivae: conjunctivae normal Neck Neck: Yes normal visual inspection and Yes supple Resp Effort & Inspection: normal respiratory effort Auscultation: clear to auscultation bilaterally Cardio Jugular venous distension: no JVD Rate: regular rate Rhythm: regular rhythm Heart sounds: S1 normal heart sound present and S2 normal heart sound present GI Inspection: Yes normal to inspection Palpation (GI): Soft to palpation and nontender Auscultation: normal bowel sounds Skin General skin exam: no rashes or lesions noted Neuro General: patient oriented x3 and no focal motor deficits Extrem General: Yes full ROM Psych Appearance: grossly normal Assessment and Plan Assessment & Plan (1) Physical exam: Code(s): Z00.00 - Encounter for general adult medical examination without abnormal findings Plan: Repeat in a year. (2) Mild recurrent major depression: Code(s): F33.0 - Major depressive disorder, recurrent, mild Plan: Continue fluoxetine. 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 A1c goal is equal or less than 7%. Orders: Orders Lipid Panel 4 Months E78.5 - Hyperlipidemia, unspecified Vitamin D 25-OH Total 4 Months E55.9 - Vitamin D deficiency, unspecified Comprehensive [place]. 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
== END 2023-06-15 13:15 | disposition home or self-care (01) ==
PROVIDERS: Visit Provider Internal Medicine
DX: Z00.00 Encounter for general adult medical examination without abnormal findings (principal); F33.0 Major depressive disorder, recurrent, mild; E11.9 Type 2 diabetes mellitus without complications
CPT/HCPCS: 99397